=== PATIENT | female | born 1950 | race Caucasian/White ===

== ENCOUNTER 2020-03-08 09:59 | Emergency (ER) | payer OTHER, SELFPAY ==
--- NOTE | 2020-03-08 10:36 | RAD REPORT ---
EXAM DESCRIPTION: CT - Ct Stroke Brain Wo Cont - 03/08/2020 10:25 am CLINICAL HISTORY: Facial droop CVA symptomology COMPARISON: No comparisons TECHNIQUE: All CT scans are performed using dose optimization technique as appropriate and may inclu de automated exposure control or mA/KV adjustment according to patient size. FINDINGS: Acute, right thalamic hemorrhage is present measuring 23 x 19 mm with mild surrounding jacque ma.No additional areas of acute hemorrhage. No hydrocephalus or extra-axial fluid collection.Moderate brain atrophy with moderate periventricular and deep white matter chronic microvascular ischemic javier nges. The paranasal sinuses and mastoids are clear. The calvarium is intact. IMPRESSION: 23 x 19 mm right thalamic acute hemorrhage is present. The findings were discussed with Nino Villegas in the ER on 03/08/2020 at 10:30 a.m. by telephone.
[2020-03-08 10:47] LABS: Absolute Lymphocytes (CBC) 1.5 K/uL (0.7-4.9); Basophils % 0.6 % (0-1.3); Lymphocytes % 18.9 % (15.3-44.8); MPV 7.3 fL (7.6-11.3)
--- NOTE | 2020-03-08 10:49 | ER ---
Nurse's Notes [facility] Name: Tia Joseph Age: 70 yrs Sex: Female : 1950 Arrival Date: 03/08/2020 Time: 10:04 Bed 2 Private MD: Diagnosis: Nontraumatic intracerebral hemorrhage, unspecified Presentation: 03/08 10:04 Chief complaint: Patient's son or daughter states: Pt presents to the ED via POV with jr10 daughter, states that "this morning when I went to change my mother I noticed that she was leaning a lot and had a tremor and then when I looked at her face I noticed that the left side of her face was drooping"; reports pt has a hx of dementia, only oriented to family at baseline. Coronavirus screen: Client denies travel out of the [place] in the last 14 days. At this time, the client does not indicate any symptoms associated with coronavirus-19. Ebola Screen: No symptoms or risks identified at this time. Initial Sepsis Screen: Does the patient meet any 2 criteria? No. Patient's initial sepsis screen is negative. Does the patient have a suspected source of infection? No. Patient's initial sepsis screen is negative. Risk Assessment: Do you want to hurt yourself or someone else? Patient reports no desire to harm self or others. Onset of symptoms. 10:04 Method Of Arrival: Wheelchair jr10 10:04 Acuity: CONCETTA 3 jr10 Historical: - Allergies: 10:17 Codeine; jr10 10:17 PENICILLINS; jr10 - Home Meds: 10:13 valsartan 160 mg oral tab [Active]; amitriptyline 10 mg Oral tab [Active]; hydralazine jr10 25 mg Oral tab [Active]; escitalopram oxalate 10 mg oral tab [Active]; simvastatin 20 mg Oral tab [Active]; pantoprazole 40 mg oral TbEC [Active]; loperamide 2 mg Oral tab [Active]; diphenoxylate-atropine 2.5-0.025 mg Oral tab [Active]; amlodipine 5 mg tab [Active]; 10:15 rivastigmine 4.6 mg/24 hr transdermal pt24 [Active]; memantine 10 mg oral tab [Active]; jr10 - PMHx: 10:15 Dementia; Alzheimers; jr10 10:16 Aortic Aneurysm; jr10 - Immunization history:: Adult Immunizations up to date. - Social history:: Smoking status: unknown. Screenin:24 Abuse screen: Denies threats or abuse. Denies injuries from another. Nutritional jr10 screening: No deficits noted. Tuberculosis screening: No symptoms or risk factors identified. Fall Risk Fall in past 12 months (25 points). Secondary diagnosis (15 points) Alzheimer's, dementia, impaired mobility, IV access (20 points). Ambulatory Aid- None/Bed Rest/Nurse Assist (0 pts). Gait- Impaired (20 pts.). Mental Status- Overestimates/Forgets Limitations (15 pts.). Assessment: 10:17 VAN Scoring: Arm Drift: Patients demonstrates NO arm weakness. Patient is VAN Negative. jr10 General: Appears in no apparent distress. Behavior is calm. Pain: Denies pain. Neuro: Level of Consciousness is awake, alert, pt has hx of severe dementia, able to follow basic commands only; pt only oriented to daughter at bedside, per daughter this is patient baseline. Oriented to none Gait is pt w/c bound. Speech no slurred speech noted, pt has hx of severe dementia, pt unable to answer questions appropriately. Facial symmetry appears normal, Pupils are PERRLA. Cardiovascular: No deficits noted. Rhythm is regular. Respiratory: No deficits noted. Airway is patent Respiratory effort is even, unlabored, Respiratory pattern is regular, symmetrical. GI: No deficits noted. No signs and/or symptoms were reported involving the gastrointestinal system. : No deficits noted. No signs and/or symptoms were reported regarding the genitourinary system. EENT: No deficits noted. No signs and/or symptoms were reported regarding the EENT system. Derm: Bruising that is yellow, pt has scattered bruising in different stages of healing noted to amy lower extremities. Musculoskeletal: No deficits noted. No signs and/or symptoms reported regarding the musculoskeletal system. Parent/caregiver report the patient having pt is w/c bound, pt noted to be at baseline upon arrival. 12:05 Reassessment: Pt family contact information: Tonya Espinal (daughter): [phone]. jr10 13:42 Reassessment: pt changed into new brief, perineal care given prior to transfer. jr10 Vital Signs: 10:04 BP 143 / 92; Pulse 84; Resp 17; Pulse Ox 98% ; Pain 0/10; jr10 10:30 BP 135 / 76; Pulse 74; Resp 18; Pulse Ox 100% on R/A; jr10 10:45 BP 154 / 88; Pulse 77; Resp 18; Pulse Ox 97% ; jr10 11:00 BP 167 / 88; Pulse 77; Resp 18; Pulse Ox 100% ; jr10 11:10 BP 154 / 80; Pulse 77; Resp 18; Pulse Ox 100% ; jr10 11:20 BP 129 / 72; Pulse 79; Resp 18; Pulse Ox 100% on R/A; jr10 11:30 BP 131 / 67; Pulse 82; Resp 17; Pulse Ox 100% ; jr10 11:30 BP 132 / 72; Pulse 88; Resp 18; Pulse Ox 100% on R/A; jr10 11:50 BP 134 / 64; Pulse 82; Resp 17; Pulse Ox 100% ; jr10 12:20 BP 137 / 82; Pulse 82; Resp 18; Pulse Ox 100% on R/A; jr10 12:50 BP 126 / 57; Pulse 80; Resp 18; Pulse Ox 100% ; jr10 13:27 BP 137 / 63; Pulse 79; Resp 19; Temp 99.2(O); Pulse Ox 100% ; Pain 0/10; jr10 NIH Stroke Scale Scores: 10:25 NIHSS Score: 3 jr10 10:29 NIHSS Score: 3 pm1 ED Course: 10:04 Patient arrived in ED. jr10 10:04 Nino Villegas NP is PHCP. pm1 10:04 Misbah Wheeler MD is Attending Physician. pm1 10:08 Triage completed. jr10 10:17 Arm band placed on. jr10 10:24 CT Stroke Brain w/o Contrast In Process Unspecified. EDMS 10:24 Patient has correct armband on for positive identification. Placed in gown. Bed in low jr10 position. Call light in reach. Side rails up X2. Adult w/ patient. daughter at bedside. monitoring engineer on. Pulse ox on. NIBP on. 10:27 Matilde Tenorio, EVAN is Primary Nurse. jr10 10:47 Stroke CXR 1 View In Process Unspecified. EDMS Administered Medications: 11:04 Drug: niCARdipine (25mg/250ml) 5 mg/hr Route: IV; Rate: calculated rate; Site: right be forearm; 13:00 Follow up: Rate change 2.5 mg/hr jrDickson 13:44 Follow up: Response: No adverse reaction; IV Status: Infusion continued upon transfer jrDickson Outcome: 10:48 ER care complete, transfer ordered by . pm1 12:04 Transferred by ground EMS to [facility], Transfer form completed. Dickson 12:04 Transferred Note: report given to EVAN Bowers 12:04 Condition: stable 12:04 Instructed on the need for transfer. 13:43 Patient left the ED. be NIH Stroke Scale - NIH Stroke Score Date: 03/08/2020 Time: 10:25 Total Score = 3 1a. Level of Consciousness (LOC) - 0(Alert) 1b. Level of Consciousness (LOC) (Year \\T\\ Age) - 2(Neither) 1c. LOC Commands (Open \\T\\ Closes Eyes/Sprinkler Truck Driver) - 1(One) 2. Best Gaze (Lateral Gaze Paresis) - 0(Normal) 3. Visual Field Loss - 0(No visual loss) 4. Facial Palsy - 0(Normal) 5a. Left Arm: Motor (10-second hold) - 0(No drift) 5b. Right Arm: Motor (10-second hold) - 0(No drift) 6a. Left Leg: Motor (5-second hold - always test supine) - 0(No drift) 6b. Right Leg: Motor (5-second hold - always test supine) - 0(No drift) 7. Limb Ataxia (finger/nose \\T\\ heel/nicole - test with eyes open) - 0(Absent) 8. Sensory Loss (pinprick arms/legs/face) - 0(Normal) 9. Best Language: Aphasia (description/naming/reading) - 0(No aphasia) 10. Dysarthria (speech clarity - read or repeat words) - 0(Normal) 11. Extinction and Inattention (visual/tactile/auditory/spatial/personal) - 0(No abnormality) Initials: be NIH Stroke Scale - NIH Stroke Score Date: 03/08/2020 Time: 10:29 Total Score = 3 1a. Level of Consciousness (LOC) - 0(Alert) 1b. Level of Consciousness (LOC) (Year \\T\\ Age) - 2(Neither) 1c. LOC Commands (Open \\T\\ Closes Eyes/Sprinkler Truck Driver) - 1(One) 2. Best Gaze (Lateral Gaze Paresis) - 0(Normal) 3. Visual Field Loss - 0(No visual loss) 4. Facial Palsy - 0(Normal) 5a. Left Arm: Motor (10-second hold) - 0(No drift) 5b. Right Arm: Motor (10-second hold) - 0(No drift) 6a. Left Leg: Motor (5-second hold - always test supine) - 0(No drift) 6b. Right Leg: Motor (5-second hold - always test supine) - 0(No drift) 7. Limb Ataxia (finger/nose \\T\\ heel/nicole - test with eyes open) - 0(Absent) 8. Sensory Loss (pinprick arms/legs/face) - 0(Normal) 9. Best Language: Aphasia (description/naming/reading) - 0(No aphasia) 10. Dysarthria (speech clarity - read or repeat words) - 0(Normal) 11. Extinction and Inattention (visual/tactile/auditory/spatial/personal) - 0(No abnormality) Initials: pm1 Signatures: Dispatcher [employer] EDMS Nino Villegas, CLINICAL PROGRAMMER CLINICAL PROGRAMMER pm1 Matilde Tenorio, RN RN jr10 Corrections: (The following items were deleted from the chart) 10:26 10:17 NIHSS Score: 2 jr10 jr10 13:31 13:27 BP 137 / 63; Pulse 79bpm; Resp 19bpm; Pulse Ox 100%; Pain 0/10; jr10 jr10
--- NOTE | 2020-03-08 10:49 | EDPHYS ---
Physician Documentation [facility] Name: Tia Joseph Age: 70 yrs Sex: Female : 1950 Arrival Date: 03/08/2020 Time: 10:04 Bed 2 Private MD: ED Physician Misbah Wheeler HPI: 03/08 10:12 This 70 yrs old Female presents to ER via Wheelchair with complaints of Facial Droop. pm1 10:12 The patient presents to the emergency department with Facial droop on the left side. pm1 Onset: The symptoms/episode began/occurred 20 minutes prior to arrival. Context: occurred at home, First time that the childcare attendant, daughter, saw the patient this AM. Associated signs and symptoms: Pertinent negatives: fever, Cough. Severity of symptoms: in the emergency department the symptoms have improved. Patient's baseline: Motor: left-sided facial droop, Able to move both legs, left weaker than the right. Usually is able to help with moving her legs to get dressed in the AM but her legs were stiff, Ambulation: unable to walk, Speech: Limited per daughter and at her current baseline, The patient has a previous history of Vascular dementia, alzheimers, left arm contracture. 10:12 Patient's baseline: Left lower side of face deficits. Left arm, left leg and left pm1 facial deficits onset 1.5 years ago. Bilateral leg weakness with inability to walk onset about 4-6 months ago. Current symptoms: Facial drooping left side of face has resolved but patient feels that eyelids are puffy. Lower legs appear stiffer per daughter. Historical: - Allergies: 10:17 Codeine; jr10 10:17 PENICILLINS; jr10 - Home Meds: 10:13 valsartan 160 mg oral tab [Active]; amitriptyline 10 mg Oral tab [Active]; hydralazine jr10 25 mg Oral tab [Active]; escitalopram oxalate 10 mg oral tab [Active]; simvastatin 20 mg Oral tab [Active]; pantoprazole 40 mg oral TbEC [Active]; loperamide 2 mg Oral tab [Active]; diphenoxylate-atropine 2.5-0.025 mg Oral tab [Active]; amlodipine 5 mg tab [Active]; 10:15 rivastigmine 4.6 mg/24 hr transdermal pt24 [Active]; memantine 10 mg oral tab [Active]; jr10 - PMHx: 10:15 Dementia; Alzheimers; jr10 10:16 Aortic Aneurysm; jr10 - Immunization history:: Adult Immunizations up to date. - Social history:: Smoking status: unknown. ROS: 10:12 Unable to obtain ROS due to baseline dementia, Information obtained from daughter, care pm1 taker. 10:12 Constitutional: Negative for fever, chills, and weight loss, Cardiovascular: Negative pm1 for chest pain and edema, Respiratory: Negative for shortness of breath, cough, wheezing, Abdomen/GI: Negative for abdominal pain, vomiting, diarrhea, and constipation, : Negative for injury, bleeding, discharge, and swelling, Skin: Negative for injury, rash, and discoloration. 10:12 Neuro: Positive for weakness, left sided facial droop, Negative for seizure activity. Exam: 10:12 Head/Face: Normocephalic, atraumatic. Eyes: Pupils equal round and reactive to light. pm1 Lids and lashes normal. Conjunctiva and sclera are non-icteric and not injected. Cornea within normal limits. Periorbital areas with no swelling, redness, or edema. Unable to test EOM - patient will not cooperate ENT: Nares patent. No nasal discharge, no septal abnormalities noted. Tympanic membranes are normal and external auditory canals are clear. Oropharynx with no redness, swelling, or masses, exudates, or evidence of obstruction, uvula midline. Mucous membranes moist. Neck: Trachea midline and no cervical lymphadenopathy 10:12 Abdomen/GI: Soft, non-tender. No distension or tympany. No evidence of tenderness throughout. Skin: Warm, dry with normal turgor. Normal color with no rashes, no lesions, and no evidence of cellulitis. 10:12 Constitutional: The patient appears in no acute distress, awake, comfortable, non-diaphoretic, non-toxic, well developed, well hydrated, well groomed, well nourished. 10:12 Cardiovascular: Exam negative for acute changes, Rate: normal, Rhythm: regular, Pulses: no pulse deficits are appreciated, Edema: is not appreciated. 10:12 Respiratory: Exam negative for acute changes, respiratory distress, shortness of breath, wheezing. 10:12 Musculoskeletal/extremity: Extremities: the patient is contracted, in the left elbow and left wrist, passive range of motion intact to right arm, right leg and left leg but patient . 10:12 Neuro: Orientation: Not oriented to person, place, time, situation, Mentation: unable to follow commands, baseline per daughter, seizure activity, is not displayed by the patient. Vital Signs: 10:04 BP 143 / 92; Pulse 84; Resp 17; Pulse Ox 98% ; Pain 0/10; jr10 10:30 BP 135 / 76; Pulse 74; Resp 18; Pulse Ox 100% on R/A; jr10 10:45 BP 154 / 88; Pulse 77; Resp 18; Pulse Ox 97% ; jr10 11:00 BP 167 / 88; Pulse 77; Resp 18; Pulse Ox 100% ; jr10 11:10 BP 154 / 80; Pulse 77; Resp 18; Pulse Ox 100% ; jr10 11:20 BP 129 / 72; Pulse 79; Resp 18; Pulse Ox 100% on R/A; jr10 11:30 BP 131 / 67; Pulse 82; Resp 17; Pulse Ox 100% ; jr10 11:30 BP 132 / 72; Pulse 88; Resp 18; Pulse Ox 100% on R/A; jr10 11:50 BP 134 / 64; Pulse 82; Resp 17; Pulse Ox 100% ; jr10 12:20 BP 137 / 82; Pulse 82; Resp 18; Pulse Ox 100% on R/A; jr10 12:50 BP 126 / 57; Pulse 80; Resp 18; Pulse Ox 100% ; jr10 13:27 BP 137 / 63; Pulse 79; Resp 19; Temp 99.2(O); Pulse Ox 100% ; Pain 0/10; jr10 NIH Stroke Scale Scores: 10:25 NIHSS Score: 3 jr10 10:29 NIHSS Score: 3 pm1 MDM: 10:04 Patient medically screened. pm1 10:32 Data reviewed: vital signs. Data interpreted: Pulse oximetry: on room air is 98 %. pm1 Interpretation: normal. 10:45 Counseling: I had a detailed discussion with the patient and/or guardian regarding: the pm1 historical points, exam findings, and any diagnostic results supporting the discharge/admit diagnosis, radiology results, the need to transfer to another facility, for higher level of care, [facility] does not immediately have the required specialist. 10:57 Physician consultation: MD Orta regarding regarding transfer, patient's condition, pm1 and will see patient. 03/08 10:12 Order name: Basic Metabolic Panel; Complete Time: 11:27 pm1 03/08 10:12 Order name: CBC with Diff; Complete Time: 11:00 pm03/08 10:12 Order name: Protime (+inr); Complete Time: 11:00 pm03/08 10:12 Order name: Ptt, Activated; Complete Time: 11: pm03/08 10:12 Order name: CT Stroke Brain w/o Contrast; Complete Time: 11:00 pm03/08 10:12 Order name: Stroke CXR 1 View; Complete Time: 11:00 pm03/08 10:12 Order name: EKG; Complete Time: 10:13 pm1 03/08 10:12 Order name: Cardiac monitoring; Complete Time: 10:27 pm1 03/08 10:12 Order name: IV Saline Lock; Complete Time: 10:43 pm1 03/08 10:12 Order name: Labs collected and sent; Complete Time: 10:43 pm1 03/08 10:12 Order name: NPO; Complete Time: 10:27 pm1 03/08 10:12 Order name: O2 Per Protocol; Complete Time: 10: pm1 03/08 10:12 Order name: O2 Sat Monitoring; Complete Time: 10:27 pm1 Administered Medications: 11:04 Drug: niCARdipine (25mg/250ml) 5 mg/hr Route: IV; Rate: calculated rate; Site: right jr10 forearm; 13:00 Follow up: Rate change 2.5 mg/hr rust 13:44 Follow up: Response: No adverse reaction; IV Status: Infusion continued upon transfer rust Disposition: 14:28 Co-signature as Attending Physician, Misbah Wheeler MD. rn Disposition: 03/08/20 10:48 Transfer ordered to [facility]. Diagnosis is Nontraumatic intracerebral hemorrhage, unspecified. - Reason for transfer: Higher level of care. - Accepting physician is [facility]. - Condition is Stable. - Problem is new. - Symptoms have improved. NIH Stroke Scale - NIH Stroke Score Date: 03/08/2020 Time: 10:25 Total Score = 3 1a. Level of Consciousness (LOC) - 0(Alert) 1b. Level of Consciousness (LOC) (Year \T\ Age) - 2(Neither) 1c. LOC Commands (Open \T\ Closes Eyes/Food Science Professor) - 1(One) 2. Best Gaze (Lateral Gaze Paresis) - 0(Normal) 3. Visual Field Loss - 0(No visual loss) 4. Facial Palsy - 0(Normal) 5a. Left Arm: Motor (10-second hold) - 0(No drift) 5b. Right Arm: Motor (10-second hold) - 0(No drift) 6a. Left Leg: Motor (5-second hold - always test supine) - 0(No drift) 6b. Right Leg: Motor (5-second hold - always test supine) - 0(No drift) 7. Limb Ataxia (finger/nose \T\ heel/nicole - test with eyes open) - 0(Absent) 8. Sensory Loss (pinprick arms/legs/face) - 0(Normal) 9. Best Language: Aphasia (description/naming/reading) - 0(No aphasia) 10. Dysarthria (speech clarity - read or repeat words) - 0(Normal) 11. Extinction and Inattention (visual/tactile/auditory/spatial/personal) - 0(No abnormality) Initials: jr10 NIH Stroke Scale - NIH Stroke Score Date: 03/08/2020 Time: 10:29 Total Score = 3 1a. Level of Consciousness (LOC) - 0(Alert) 1b. Level of Consciousness (LOC) (Year \T\ Age) - 2(Neither) 1c. LOC Commands (Open \T\ Closes Eyes/Food Science Professor) - 1(One) 2. Best Gaze (Lateral Gaze Paresis) - 0(Normal) 3. Visual Field Loss - 0(No visual loss) 4. Facial Palsy - 0(Normal) 5a. Left Arm: Motor (10-second hold) - 0(No drift) 5b. Right Arm: Motor (10-second hold) - 0(No drift) 6a. Left Leg: Motor (5-second hold - always test supine) - 0(No drift) 6b. Right Leg: Motor (5-second hold - always test supine) - 0(No drift) 7. Limb Ataxia (finger/nose \T\ heel/nicole - test with eyes open) - 0(Absent) 8. Sensory Loss (pinprick arms/legs/face) - 0(Normal) 9. Best Language: Aphasia (description/naming/reading) - 0(No aphasia) 10. Dysarthria (speech clarity - read or repeat words) - 0(Normal) 11. Extinction and Inattention (visual/tactile/auditory/spatial/personal) - 0(No abnormality) Initials: pm1 Signatures: Dispatcher [employer] EDMisbah Basilio MD MD rn Marinas, Patrick, ELLIOT BOBBIN WINDER TENDER pm1 Matilde Tenorio RN RN jr10 Corrections: (The following items were deleted from the chart) 12:55 10:12 Accucheck ordered. pm1 jr10 13:43 10:48 03/08/2020 10:48 Transfer ordered to [address] Diagnosis is Nontraumatic intracerebral hemorrhage, unspecified. Reason for transfer: Higher level of care. Accepting physician is [facility]. Condition is Stable. Problem is new. Symptoms have improved. pm1
[2020-03-08 10:54] LABS: Protime INR 1.12
--- NOTE | 2020-03-08 10:59 | RAD REPORT ---
EXAM DESCRIPTION: RAD - Chest Single View - 03/08/2020 10:47 am CLINICAL HISTORY: Facial droop Chest pain. COMPARISON: No comparisons FINDINGS: Portable technique limits examination quality. The lungs are grossly clear. The heart is normal in size. Extensive thoracic aortic stenting.Sternoto my wires present. IMPRESSION: No acute intrathoracic process suspected.
[2020-03-08 11:02] LABS: Potassium 3.6 mmol/L (3.5-5.1)
[2020-03-08] MEDS ORDERED: Nicardipine/NS 25 MG/250 ML KIT IV ONE (11:05)
[2020-03-08 13:57] VITALS: O2SAT 100
[2020-03-08 14:10] VITALS: BP 137/63; TEMP 99.2
--- NOTE | 2020-03-10 08:45 | EKG ---
Test Date: 2020-03-08 Test Time: 10:50:47 Trauma Therapist: TERRELL MEASUREMENT RESULTS: Intervals: Rate: 75 NH: 118 QRSD: 90 QT: 422 QTc: 471 [place]: P: 64 NH: 118 QRS: 34 T: 32 INTERPRETIVE STATEMENTS: Normal sinus rhythm Normal ECG No previous ECG available for comparison Electronically Signed On 03-10-20 08:39:01 CDT by Kulwinder Osborn
== END 2020-03-08 13:43 | disposition short-term general hospital (02) ==
LOC: ER 09:59
DX: I61.9 Nontraumatic intracerebral hemorrhage, unspecified (principal); R29.703 NIHSS score 3; G30.9 Alzheimer's disease, unspecified; F02.80 Dementia in other diseases classified elsewhere, unspecified severity, without behavioral disturbance, psychotic disturbance, mood disturbance, and anxiety; Z88.0 Allergy status to penicillin; Z88.5 Allergy status to narcotic agent
CPT/HCPCS: 36415; 70450; 71045; 80048; 85025; 85610; 85730; 93005; 96365; 96366; 99285